=== PATIENT | female | born 2000 | race Hispanic/Latino ===

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

== ENCOUNTER 2019-03-11 22:40 | Emergency (ER) | payer OTHER ==
[~2019-03-11] VITALS: Ht 160 cm; Wt 79.4 kg
--- OUTSIDE RECORDS SUMMARY | ~2019-03-11 | XMS | Encounter Summary ---
Demographics + + + | Address | [address] | | | [place] [address] | + + + | Home Phone | | + + + | Preferred Language | Unknown | + + + | Marital Status | Single | + + + | Cheondoism Affiliation | Unknown | + + + | Race | White | + + + | Ethnic Group | or | + + + Author + + + | Author | [facility] | + + + | Organization | [facility] | + + + | Address | Unknown | + + + | Phone | Unavailable | + + + Support + + +---------+ + | Name | Relationship | Address | Phone | + + +---------+ + | Lizz Trejo | ECON | Unknown | | + + +---------+ + | Lacey Reyes | ECON | Unknown | Unavailable | + + +---------+ + Care Team Providers + +------+ + | Care Marine Fisheries Technician Name | Role | Phone | + +------+ + | Juan Serrano NP | PCP | | + +------+ + Reason for Referral Diagnostic Testing (Routine) +--------+--------+ + + + + | Status | Reason | Specialty | Diagnoses / | Referred By | Referred To | | | | | Procedures | Contact | Contact | +--------+--------+ + + + + | Closed | | Radiology | Diagnoses | [facility] Serrano [facility] | | | | | Spina | Juan Rendon NP | [address] | | | | | bifida | [address] | [facility] | | | | | without | HOSPITAL WE | Rd | | | | | mention of | CARE CLINIC | Mailcode: | | | | | hydrocephalu | [address] | [address] | | | | | s, lumbar | [address] | [place] | | | | | region | [place], | Research | | | | | Lumbago | [place] [address] | Center | | | | | Procedures | Phone: | [place], [place] | | | | | MRI SPINE | [phone] | [address] | | | | | LUMBAR WO | Fax: | Phone: | | | | | CONT | [phone] | [phone] | | | | | | | Fax: | | | | | | | [phone] | +--------+--------+ + + + + Encounter Details +--------+ + + + + | Date | Type | Department | Care Team | Description | +--------+ + + + + | 06/08/ | Outside | Diagnostic Imaging | Juan Serrano, | | | 2011 | Referral | Services at [facility] | [employer] [address] | | | | Order | [address] [facility] | [facility] | | | | | Makayla Dowd Mailcode: | CLINIC [address] | | | | | [address] | [address] [place], [place] | | | | | [facility] | [address] | | | | | [place], [place] | | | | | | [address] | | | | | | [phone] | | | +--------+ + + + + Social History + +-------+ +--------+------+ | Tobacco Use | Types | Packs/Day | Years | Date | | | | | Used | | + +-------+ +--------+------+ | Never Assessed | | | | | + +-------+ +--------+------+ + + + | Sex Assigned at | Date Recorded | | | | + + + | Not on file | | + + + + + + + | Job Start Date | Occupation | Industry | + + + + | Not on file | Not on file | Not on file | + + + + + + + + | Travel History | Travel Start | Travel End | + + + + + + | No recent travel history available. | + + documented as of this encounter Plan of Treatment Not on filedocumented as of this encounter Results MRI SPINE LUMBAR WO CONT (07/12/2011 12:01 PM PDT) + + + + + + | Component | Value | Ref Range | Performed | Pathologist | | | | | At | Signature | + + + + + + | MR LUMBAR | MRI LUMBAR SPINE WITHOUT | | | | | SPINE WO | CONTRAST, 07/12/11 | | | | | CONT | 12:01:00 INDICATION: | | | | | | 11-year-old with low | | | | | | back pain. COMPARISON: | | | | | | None TECHNIQUE: | | | | | | Multiplanar, | | | | | | multi-sequence | | | | | | surface-coil MR imaging | | | | | | of thelumbar spine was | | | | | | performed without | | | | | | intravenous | | | | | | administration | | | | | | ofgadolinium-based | | | | | | contrast. Axial T1 | | | | | | sequence not performed | | | | | | as thestudy was not | | | | | | ordered as a tethered | | | | | | cord protocol. | | | | | | FINDINGS:The vertebral | | | | | | body heights and | | | | | | alignment maintained. | | | | | | Five lumbartype lumbar | | | | | | vertebrae. Bone marrow | | | | | | edema signal is noted in | | | | | | the L5 pedicles | | | | | | bilaterally.Also, a T2 | | | | | | hyperintense (cystic) | | | | | | lesion is identified | | | | | | along thelateral aspect | | | | | | of the left L5-S1 facet | | | | | | joint with no | | | | | | intraspinalcomponent. | | | | | | Mild facet arthropathy | | | | | | is also noted at the | | | | | | L4-L5 facets. No disk | | | | | | herniation, spinal canal | | | | | | stenosis or neural | | | | | | foraminalnarrowing. | | | | | | Morphologically normal | | | | | | conus medullaris ends at | | | | | | the L1-L2 levelwithout | | | | | | evidence of a fatty | | | | | | filum on the sagittal T1 | | | | | | sequence. | | | | | | IMPRESSION:L4-L5 and | | | | | | L5-S1 facet arthropathy | | | | | | with a suspected | | | | | | extraspinalsynovial cyst | | | | | | at the left L5-S1 | | | | | | level. 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 Attending | | | | | | Radiologists: Mahogany | | | | | | Arnoldo CastilloAuthor: Jae | | | | | | Arnoldo Parker I have | | | | | | personally viewed this | | | | | | procedure/exam, reviewed | | | | | | this report,and made | | | | | | changes to it where | | | | | | appropriate. | | | | | | Final/Electronically | | | | | | signed / Mahogany | | | | | | Jonathan 07/12/2011 16:13 | | | | | | PM Pending final | | | | | | approval / Jae | | | | | | Keith 07/12/2011 14:49 | | | | | | PM Preliminary / | | | | | | Jae Parker 07/12/2011 | | | | | | 12:33 PM | | | | + + + + + + + + | Specimen | + + | | + + + +---------+ + + | Performing | Address | City/State/Zipcode | Phone Number | | Organization | | | | + +---------+ + + | [facility] DEPARTMENT OF | | | | | RADIOLOGY | | | | + +---------+ + + documented in this encounter Visit Diagnoses + + | Diagnosis | + + | Spina bifida without mention of hydrocephalus, lumbar region | + + | Lumbago | + + documented in this encounter"
--- OUTSIDE RECORDS SUMMARY | ~2019-03-11 | XMS | Encounter Summary ---
Demographics + + + | Address | [address] | | | [place] [address] | + + + | Home Phone | | + + + | Preferred Language | Unknown | + + + | Marital Status | Single | + + + | Muslim Affiliation | Unknown | + + + | Race | White | + + + | Ethnic Group | or | + + + Author + + + | Author | [facility] | + + + | Organization | [facility] | + + + | Address | [...] Team Providers + +------+ + | Care Community Living Coach Name | Role | Phone | + [...] | Spina | Juan Rendon NP | [address] | | | | | bifida | [address] | [facility] | | | | | without | HOSPITAL WE | Rd | | | | | mention of | CARE CLINIC | Mailcode: | | | | | hydrocephalu | [address] | [address] | | | | | s, lumbar | [address] | [place] | | | | | region | [place], | Research | | | | | Lumbago | [place] [address] | Center | | | | | Procedures | Phone: | [place], [place] | | | | | MRI SPINE | [phone] | [address] | | | | | LUMBAR WO | Fax: | Phone: | | | | | CONT | [phone] | [phone] | | | | | | | Fax: | | | | | | | [phone] | +--------+--------+ + + + + Reason for Visit Diagnostic Testing (Routine) +--------+--------+ + + + + | Status | Reason | Specialty | Diagnoses / | Referred By | Referred To | | | | | Procedures | Contact | Contact | +--------+--------+ + + + + | Closed | | Radiology | Diagnoses | Maggie, | [facility] | | | | | Spina | Juan Rendon NP | [address] | | | | | bifida | [address] | [facility] | | | | | without | HOSPITAL WE | Rd | | | | | mention of | CARE CLINIC | Mailcode: | | | | | hydrocephalu | [address] | [address] | | | | | s, lumbar | [address] | [place] | | | | | region | [place], | Research | | | | | Lumbago | [place] [address] | Center | | | | | Procedures | Phone: | [place], [place] | | | | | MRI SPINE | [phone] | [address] | | | | | LUMBAR WO | Fax: | Phone: | | | | | CONT | [phone] | [phone] | | | | | | | Fax: | | | | | | | [phone] | +--------+--------+ + + + + Encounter Details +--------+ + + + + | Date | Type | Department | Care Team | Description | +--------+ + + + + | 07/11/ | Hospital | Radiology/Imaging | | | | 2011 | Encounter | Lab at [facility] [address] | | | | | [address] Mailcode: | | | | | | [facility] [place] [facility] | | | | [facility], | | | | | | Building [address], 3rd | | | | | | Floor [place], [place] | | | | | | [address] | | | | | | [phone] | | | +--------+ + + + + Social History + +-------+ +--------+------+ | Tobacco Use | Types | Packs/Day | Years | Date | | | | | Used | | + +-------+ +--------+------+ | Never Smoker | | | | | + +-------+ +--------+------+ + + +---------+ + | Alcohol Use | Drinks/Week | oz/Week | Comments | + + +---------+ + | Not Asked | | | | + + +---------+ + + + + | Sex Assigned at [...] + + documented as of this encounter Medications at Time of Discharge + + + +---------+--------+ + | Medication | Sig | Dispensed | Refills | Start | End Date | | | | | | Date | | + + + +---------+--------+ + | ACETAMINOPHEN WITH | Take by mouth. | | 0 | | | | CODEINE | | | | | | | (TYLENOL-CODEINE #3 | | | | | | | ORAL) | | | | | | + + + +---------+--------+ + | NAPROXEN ORAL | Take 550 mg by | | 0 | | | | | mouth. | | | | | + + + +---------+--------+ + documented as of this encounter Plan of Treatment Not on filedocumented as of this encounter Procedures + +--------+ + + + | Procedure Name | Priori | Date/Time | Associated Diagnosis | Comments | | | ty | | | | + +--------+ + + + | MRI SPINE LUMBAR WO | Routin | 07/12/2011 | Spina bifida | Results for this | | CONT | e | 12:01 PM | without mention of | procedure are in the | | | | PDT | hydrocephalus, | results section. | | | | | lumbar region | | | | | | Lumbago | | + +--------+ + + + documented in this encounter Results MRI SPINE LUMBAR WO [...] Jae | | | | | | Jesse Parker. I have | | | | | [...] | | + +---------+ + + | [facility] DEPARTMENT OF | | | | | RADIOLOGY | | | | + +---------+ + + documented in this encounter Visit Diagnoses + + | Diagnosis | + + | Spina bifida without mention of hydrocephalus, lumbar region | + + | Lumbago | + + documented in this encounter"
--- OUTSIDE RECORDS SUMMARY | ~2019-03-11 | XMS | Encounter Summary ---
Demographics + + + | Address | [address] | | | [place] [address] | + + + | Home Phone | | + + + | Preferred Language | Unknown | + + + | Marital Status | Single | + + + | Congregational Affiliation | Unknown | + + + | Race | White | + + + | Ethnic Group | or | + + + Author + + + | Author | [facility] | + + + | Organization | [facility] | + + + | Address | [...] Team Providers + +------+ + | Care Employee Representative Name | Role | Phone | + +------+ + | Juan Serrano NP | PCP | | + +------+ + Reason for Referral Consultation (Routine) +--------+--------+ + + + + | Status | Reason | Specialty | Diagnoses / | Referred By | Referred To | | | | | Procedures | Contact | Contact | +--------+--------+ + + + + | Closed | | Pediatric | Diagnoses | Bernard | [facility] | | | | Orthopedics | Back pain | Davey | [facility] [address] | | | | | Procedures | ,PhD [address] | [place] | | | | | CONSULT TO | [address] | Mailcode: | | | | | PEDS | [facility] | [address] | | | | | ORTHOPEDIC | [address] | [email or web address] | | | | | | [place], [place] | [place], [place] | | | | | | [address] | [address] | | | | | | Phone: | Phone: | | | | | | [phone] | [phone] | | | | | | Fax: | Fax: | | | | | | [phone] | [phone] | +--------+--------+ + + + + Reason for Visit + + + | Reason | Comments | + + + | New patient | | | consultation | | + + + Consultation (Routine) +--------+--------+ + + + + | Status | Reason | Specialty | Diagnoses / | Referred By | Referred To | | | | | Procedures | Contact | Contact | +--------+--------+ + + + + | Closed | | Pediatric | Diagnoses | Maggie, | Emmanuel, | | | | Neurological | Spina | Juan Rendon BUTTON STATION WORKER | MD Garett | | | | Surgery | bifida | [address] | [address] | | | | | without | HOSPITAL WE | Ave | | | | | mention of | CARE CLINIC | [place], [place] | | | | | hydrocephalu | [address] | [address] | | | | | s, lumbar | [address] | Phone: | | | | | region | [place], | [phone] | | | | | Lumbago | [place] [address] | Fax: | | | | | --AUT | Phone: | [phone] | | | | | H req'd | [phone] | | | | | | prior to | Fax: | | | | | | scheduling | [phone] | | +--------+--------+ + + + + Encounter Details +--------+---------+ + + + | Date | Type | Department | Care Team | Description | +--------+---------+ + + + | 07/11/ | Office | Neurosurgery at | Garett Benitez MD | Back pain (Primary | | 2012 | Visit | [address] | [address] | Dx) | | | | Ave Mailcode: CH[address] | [place], [place] | | | | | [facility] | [address] | | | | | and Healing, | [phone] | | | | | [facility] | | | | | | Floor [place], [place] | | | | | | [address] | | | | | | [phone] | | | +--------+---------+ + + + Social History + +-------+ [...] + + documented as of this encounter Progress Notes Garett Benitez MD - 07/12/2011 1:13 PM PDTI saw and evaluated the patient. I agree with the findings and the plan of care as documented in the resident s note. Exam normal. Back pain only. MRI shows a small extra spinal per radiology synovial cyst lat eral joint aspect not near neural elements, no tethered cord. There is high marrow signal in bilateral L5 pedicles without obvious lysis, suggestive of possible injury/strain and sourc e of axial LBP. I have referred to orthopedics who manage this problem. They are also aware of a potential myriad of non-spinal causes, that were not evaluated tod ay, that MRI shows other non-spinal areas of the body incidentally that I cannot evaluate, e tc. All their excellent questions were answered at length and they expressed understanding and satisfaction. Dx: Axial low back pain. Garett Benitez MD, PhD, FACS, FAAP [facility] Professor of Pediatric Neurosurgery [employer] Supervisor for Education and Lathe Hand Davey Shrestha MD,PhD - 07/12/2011 12:36 PM PDT PEDIATRIC NEUROSURGERY CONSULTATION ATTENDING SURGEON: Garett Benitez MD., Ph.D Reason for Consultation: Back pain HPI: 11 y/o F first developed back pain at age 8 after a fall. She subsequently improved, but developed recurrent pain this year after another fall. She states the pain is on the R side of her back and does not radiate. She has tried tylenol 3 and naproxen for pain withou t significant relief. Her PCP ordered x-rays of the lumbar spine that showed spina bifida o culta at S1/2 and she was referred for neurosurgical evaluation. She states that she occasi onally feels weak in her thighs, but otherwise denies numbness, tingling or weakness. She d enies bowel or bladder dysfunction. History: No past medical history on file. Past Surgical History Procedure Date No past surgical history Current outpatient prescriptions:ACETAMINOPHEN WITH CODEINE (TYLENOL-CODEINE #3 ORAL), Take by mouth. , Disp: , Rfl: NAPROXEN ORAL, Take 550 mg by mouth. , Disp: , Rfl: No Known Allergies Review of Systems: This patient/parent denies any difficulties with headache, double vision, numbness or weakn ess of the face, difficulty with swallowing, history of seizures, numbness or weakness of ex tremities, difficulty with gait, pain, or drop-off in development or cognitive performance. They deny headache, sleep disturbance, food intolerance or unexplained vomiting, or other in direct signs of raised intracranial pressure. Other review of systems are negative. There i s no bleeding diathesis. History: Term, vaginal delivery without problems. Developmental History: On par. Family History: Non-contributory for presenting complaint and findings. Social History: Lives at home in supportive non-smoking home care environment. Physical Exam: There were no vitals taken for this visit. The patient is well-developed and well-nourished, and pain free. There are no cutaneous stigmata of neurophakomatoses or of midline spinal dysraphism. Normocephalic. The abdomen is soft, without masses or rebound tenderness. The neck is supple without mass es and the trachea is midline. Neurological exam: Alert, oriented, age appropriate fluent speech/verbalization. Pupils are equal, round, and reactive to light. EOMI. Sensation to touch in face is prese nt and symmetrical. Faces symmetrical. Hearing grossly intact. Tongue protrudes into midl ine. Palate elevates at midline. Good SCM and Trapezius muscle function bilaterally. Hear ing is intact to finger-rub. Vision is intact to objects/type. Extremity exam: Right deltoid 5/5 Right biceps 5/5 Right triceps 5/5 Right hand intrinsics 5/5 Left deltoid 5/5 Left biceps 5/5 Left triceps 5/5 Left hand intrinsics 5/5 Right iliopsoas 5/5 Right quadriceps femoris 5/5 Right anterior tibialis 5/5 Right gastrocnemius 5/5 Right EHL 5/5 Left iliopsoas 5/5 Left quadriceps femoris 5/5 Left anterior tibialis 5/5 Left gastrocnemius 5/5 Left EHL 5/5 Reflexes: Right Biceps: 2/4 Right Triceps 2/4 Left Biceps 2/4 Left Triceps 2/4 Right Knee 2/4 Right Ankle 2/4 Left Knee 2/4 Left Ankle 2/4 Plantar response: toes going downward bilaterally. There are no Hoffmans reflexes, ankle clonus or long tract signs. Sensory exam in extremities: No sensory deficits in right upper extremity to light touch. No sensory deficits in left upper extremity to light touch No sensory deficits in right lower extremity to light touch No sensory deficits in left lower extremity to light touch The lower extremities and feet are of equal size and length with normal, symmetric arches. Muscle bulk and tone are normal and symmetric. There is no gross scoliosis There is tenderness to palpation diffusely over the lumbar spine, and focal tenderness on t he R in the lower lumbar spine Cerebellar exam: No dysmetria on finger to nose on right. No dysmetria on finger to nose on left. Mobility/gait is normal for age. Imaging: MRI of the lumbar spine shows normal alignment. The discs are well-hydrated. There is no spondylolisthesis. The conus ends at L1/2. There is STIR hyperintensity in the pedicles bi laterally at L5. There is a a synovial cyst extending posteriorly from the R L5/S1 facet erma int that does not cause neural compression. Assessment: 11 y/o F with non-radicular low back pain. There is no neural compression or e vidence of spinal cord tethering. Plan: Refer to pediatric orthopedics for evaluation of L5 pedicle edema and synovial cyst. See Dr. Benitez's note for details. documented in this encounter Plan of Treatment Not on filedocumented as of this encounter Procedures + +--------+ + + + | Procedure Name | Priori | Date/Time | Associated Diagnosis | Comments | | | ty | | | | + +--------+ + + + | RADIOLOGY | | 07/12/2011 | | Results for this | | | | 12:00 AM | | procedure are in the | | | | PDT | | results section. | + +--------+ + + + documented in this encounter Results RADIOLOGY (07/12/2011 12:00 AM PDT) + + + | Narrative | Performed At | + + + | | | + + + + + | Transcriptions | + + | Yuriy Tracy - 07/13/2011 4:49 PM PDT | + + documented in this encounter Visit Diagnoses + + | Diagnosis | + + | Back pain - Primary Backache, unspecified | + + documented in this encounter"
--- OUTSIDE RECORDS SUMMARY | ~2019-03-11 | XMS | Clinical Summary ---
Demographics + + + | Address | [address] | | | [place] [address] | + + + | Home Phone | | + + + | Preferred Language | Unknown | + + + | Marital Status | Single | + + + | Pentecostal Affiliation | Unknown | + + + | Race | White | + + + | Ethnic Group | or | + + + Author + + + | Author | NON REVENUE LOCATIONS | + + + | Organization | NON REVENUE LOCATIONS | + + + | Address | [...] Team Providers + +------+ + | Care Supervisor Publications Name | Role | Phone | + +------+ + | Juan Serrano JEWELRY MANAGER | PCP | | + +------+ + Source Comments LUNA is fully live on both [facility] Ambulatory and [facility] InPatient.[facility] Allergies No Known Allergies Medications + + + +---------+------+------+-------+ | Medication | Sig | Dispensed | Refills | Star | End | Statu | | | | | | t | Date | s | | | | | | Date | | | + + + +---------+------+------+-------+ | ACETAMINOPHEN WITH | Take by mouth. | | 0 | | | Activ | | CODEINE | | | | | | e | | (TYLENOL-CODEINE #3 | | | | | | | | ORAL) | | | | | | | + + + +---------+------+------+-------+ | NAPROXEN ORAL | Take 550 mg by | | 0 | | | Activ | | | mouth. | | | | | e | + + + +---------+------+------+-------+ Active Problems + + + | Problem | Noted Date | + + + | Back pain | 07/12/2011 | + + + Family History + +------+--------+ + | Relation | Name | Status | Comments | + +------+--------+ + | Brother | | Alive | | + +------+--------+ + | Father | | Alive | | + +------+--------+ + | Mother | | Alive | | + +------+--------+ + | Sister | | Alive | | + +------+--------+ + Social History + +-------+ +--------+------+ | [...] recent travel history available. | + + Last Filed Vital Signs + + + + + | Vital Sign | Reading | Time Taken | Comments | + + + + + | Blood Pressure | - | - | | + + + + + | Pulse | - | - | | + + + + + | Temperature | - | - | | + + + + + | Respiratory Rate | - | - | | + + + + + | Oxygen Saturation | - | - | | + + + + + | Inhaled Oxygen | - | - | | | Concentration | | | | + + + + + | Weight | 62.2 kg (137 lb 2 | 08/07/2011 3:24 PM | | | | oz) | PDT | | + + + + + | Height | 160 cm (5' 2.99") | 08/07/2011 3:24 PM | | | | | PDT | | + + + + + | Body Mass Index | 24.3 | 08/07/2011 3:24 PM | | | | | PDT | | + + + + + Plan of Treatment + + + + + | Health Maintenance | Due Date | Last Done | Comments | + + + + + | Influenza (Flu) | | | | | vaccination (#1) | 9 | | | + + + + + | Pneumococcal | Aged Out | | No longer eligible | | vaccination | | | based on patient's | | | | | age to complete this | | | | | topic | + + + + + Results Not on filefrom Last 3 Months Insurance +---------+--------+ +--------+ +---------+--------+ | Payer | Benefi | Subscriber | Effect | Phone | Address | Type | | | t Plan | ID | jc | | | | | | / | | Dates | | | | | | Group | | | | | | +---------+--------+ +--------+ +---------+--------+ | | [employer]IC[employer] | [phone] | 07/02/19 | [phone] | | Indemn | | | [place] | | 13-Pre | 8 | | ity | | | | | sent | | | | | | HEALTH | | | | | | | | NET | | | | | | +---------+--------+ +--------+ +---------+--------+ + +--------+ +--------+ + + | Guarantor Name | Accoun | Relation to | Date | Phone | Billing Address | | | t Type | Patient | of | | | | | | | | | | + +--------+ +--------+ + + | L[facility]Y [facility] | Person | Parent | [birth year] | [address] | | | al/Fam | | 1983 | [phone] | [place] | | | linda | | | 8 (Home) | [phone] | + +--------+ +--------+ + +
--- OUTSIDE RECORDS SUMMARY | ~2019-03-11 | XMS | Clinical Summary ---
Demographics + + + | Address | [address] | | | [place] [address] | + + + | Home Phone | | + + + | Preferred Language | Unknown | + + + | Marital Status | Single | + + + | Anabaptist Affiliation | Unknown | + + + [...] Team Providers + +------+ + | Care Adult Nurse Practitioner Name | Role | Phone | + +------+ + | Juan Serrano SCREW MACHINE SET UP OPERATOR TOOL | PCP | | + +------+ + Source Comments LUNA is fully live on both [facility] and [facility] InPatient.[facility] Allergies No Known Allergies Medications + + [...] linda | | | [address] (Home) | [id number] | + +--------+ +--------+ + +
--- OUTSIDE RECORDS SUMMARY | ~2019-03-11 | XMS | Encounter Summary ---
Demographics + + + | Address | [address] | | | [place] [address] | + + + | Home Phone | | + + + | Preferred Language | Unknown | + + + | Marital Status | Single | + + + | Anabaptist Affiliation | Unknown | + + + | Race | White | + + + | Ethnic Group | or | + + + Author + + + | Author | [facility] | + + + | Organization | [facility] | + + + | Address | [...] Team Providers + +------+ + | Care Diversity Manager Name | Role | Phone | + [...] Orthopedics | Back pain | Davey | [facility] [address] | | | | | Procedures | ,PhD 2890 | [place] | | | | | CONSULT TO | [address] | Mailcode: | | | | | PEDS | [facility] | [address] | | | | | ORTHOPEDIC | Rd | [facility] | | | | | | [place], [place] | [place], [place] | | | | | | [address] | [address] | | | | | | Phone: | Phone: | | | | | | [phone] | [phone] | | | | | | Fax: | Fax: | | | | | | [phone] | [phone] | +--------+--------+ + + + + Reason [...] | Neurological | Spina | Juan Rendon CHEMICAL PROCESSING EQUIPMENT REPAIRER | MD Garett | | | | Surgery | bifida | [address] | [address] | | | | | without | HOSPITAL WE | Ave | | | | | mention of | CARE CLINIC | [place], [place] | | | | | hydrocephalu | [address] | [address] | | | | | s, lumbar | [address] | Phone: | | | | | region | [place], | [phone] | | | | | Lumbago | [place] [address] | Fax: | | | | | --AUT | Phone: | [phone] | | | | | H req'd | [phone] | | | | | | prior to | Fax: | | | | | | scheduling | [phone] | | +--------+--------+ + + + + [...] | | | Ave Mailcode: CH8N | [place], [place] | | | | | [facility] | [address] | | | | | and Healing, | [phone] | | | | | [facility] | | | | | | Floor [place], [place] | | | | | | [address] | | | | | | [phone] | | | +--------+---------+ + + + [...] pain. Garett Benitez MD, PhD, FACS, FAAP [facility] Professor of Pediatric Neurosurgery Ambulatory Care for Education and Track Service Worker Davey Shrestah MD,PhD - 07/12/2011 12:36 PM PDT PEDIATRIC [...]
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
--- OUTSIDE RECORDS SUMMARY | ~2019-03-11 | XMS | Encounter Summary ---
Demographics + + + | Address | [address] | | | [place] [address] | + + + | Home Phone | | + + + | Preferred Language | Unknown | + + + | Marital Status | Single | + + + | Jew Affiliation | Unknown | + + + | Race | White | + + + | Ethnic Group | or | + + + Author + + + | Author | [facility] | + + + | Organization | [facility] | + + + | Address [...] Team Providers + +------+ + | Care Assembler Handbags Name | Role | Phone | + +------+ + | Juan Serrano NP | PCP | | + +------+ + Encounter Details +--------+ + + + + | Date | Type | Department | Care Team | Description | +--------+ + + + + | 05/03/ | Abstract | NON-[facility] EPIC | Juan Serrano, | | | 2011 | | Department | ELECTRICAL INTEGRATOR [address] | | | | | | [facility] | | | | | | CLINIC [address] [facility] | | | | | | [place] | | | | | | [address] | | | | | | | | +--------+ + + + [...] filedocumented as of this encounter Visit Diagnoses Not on filedocumented in this encounter"
--- OUTSIDE RECORDS SUMMARY | ~2019-03-11 | XMS | Encounter Summary ---
Demographics + + + | Address | [address] | | | [place] [address] | + + + | Home Phone | | + + + | Preferred Language | Unknown | + + + | Marital Status | Single | + + + | Mosque Affiliation | Unknown | + + + | Race | White | + + + | Ethnic Group | or | + + + Author + + + | Author | [facility] | + + + | Organization | [facility] | + + + | Address | [...] Team Providers + +------+ + | Care Patient Assessment Coordinator Name | Role | Phone | + [...] | | | | Procedures | ,PhD [address] | [place] | | | | | CONSULT TO | [facility] | Mailcode: | | | | | PEDS | [facility] | [address] | | | | | ORTHOPEDIC | Rd | [address] | | | | | | [place], [place] | [place], [place] | | | | | | [address] | [address] | | | | | | Phone: | Phone: | | | | | | [phone] | [phone] | | | | | | Fax: | Fax: | | | | | | [phone] | [phone] | +--------+--------+ + + + + Encounter Details +--------+---------+ + + + | Date | Type | Department | Care Team | Description | +--------+---------+ + + + | 08/06/ | Office | Specialty Clinics | Umberto Araiza, | Low back pain | | 2011 | Visit | at [facility] [address] | [address] | (Primary Dx) | | | | [place] Mailcode: | [address] | | | | | [address] | [place], [place] | | | | | [place], [place] | [address] | | | | | [address] | [phone] | | | | | [phone] | | | +--------+---------+ + + + [...] and family will be contacted by our office support with additional inst ruction. Follow-up as needed. [...]
--- OUTSIDE RECORDS SUMMARY | ~2019-03-11 | XMS | Encounter Summary ---
Demographics + + + | Address | [address] | | | [place] [address] | + + + | Home Phone | | + + + | Preferred Language | Unknown | + + + | Marital Status | Single | + + + | Islam Affiliation | Unknown | + + + | Race | White | + + + | Ethnic Group | or | + + + Author + + + | Author | [facility] | + + + | Organization | [facility] | + + + | Address [...] Team Providers + +------+ + | Care Mortgage Processing Manager Name | Role | Phone | [...] | Spina | Juan Rendon NP | [address] | | | | | bifida | [address] | [facility] | | | | | without | [...] | | | | Lumbago | [place] [address] | Center | | | | | Procedures | Phone: | [place], [place] | | | | | MRI SPINE | [phone] | [address] | | | | | LUMBAR WO | Fax: | Phone: | | | | | CONT | [phone] | [phone] | | | | | | | Fax: | | | | | | | [phone] | +--------+--------+ + + + + Encounter Details +--------+ + + + + | Date | Type | Department | Care Team | Description | +--------+ + + + + | 06/08/ | Outside | Diagnostic Imaging | Juan Serrano, | | | 2011 | Referral | Services at [facility] | MAINTENANCE ENGINEER [address] | | | | Order | [address] [facility] | [facility] | | | | | Makayla Dowd Mailcode: | CLINIC [address] | | | | | [address] | [address] [place], [place] | | | | | [facility] | [address] | | | | | [place], [place] | | | | | | [address] | | | | | | [phone] | | | +--------+ + + + [...] | | + +---------+ + + | [facility] DEPARTMENT OF | | | | | RADIOLOGY | | | | + +---------+ + + documented in this encounter Visit Diagnoses + + | Diagnosis | + + | Spina bifida without mention of hydrocephalus, lumbar region | + + | Lumbago | + + documented in this encounter"
--- OUTSIDE RECORDS SUMMARY | ~2019-03-11 | XMS | Encounter Summary ---
Demographics + + + | Address | [address] | | | [place] [address] | + + + | Home Phone | | + + + | Preferred Language | Unknown | + + + | Marital Status | Single | + + + | Zoroastrianism Affiliation | Unknown | + + + | Race | White | + + + | Ethnic Group | or | + + + Author + + + | Author | [facility] | + + + | Organization | [facility] | + + + | Address | [...] Team Providers + +------+ + | Care Video Tape Transferrer Name | Role | Phone | + +------+ + | Juan Serrano NP | PCP | | + +------+ + Encounter Details +--------+ + + + + | Date | Type | Department | Care Team | Description | +--------+ + + + + | 05/03/ | Abstract | NON-[facility] EP[facility] | Juan Serrano, | | | 2011 | | Department | CONDUCTOR [address] | | | | | | [facility] | | | | | | CLINIC [address] [facility] | | | | | | [place] | | | | | | [address] | | | | | | | [...]
--- OUTSIDE RECORDS SUMMARY | ~2019-03-11 | XMS | Encounter Summary ---
Demographics + + + | Address | [address] | | | [place] [address] | + + + | Home Phone | | + + + | Preferred Language | Unknown | + + + | Marital Status | Single | + + + | Mormonism Affiliation | Unknown | + + + | Race | White | + + + | Ethnic Group | or | + + + Author + + + | Author | [facility] | + + + | Organization | [facility] | + + + | Address [...] Team Providers + +------+ + | Care Ergonomist Name | Role | Phone | + [...] | Spina | Juan Rendon NP | [address] | | | | | bifida | [address] | [facility] | | | | | without | HOSPITAL WE | Rd | | | | | mention of | CARE CLINIC | Mailcode: | | | | | hydrocephalu | [address] | [address] | | | | | s, lumbar | [address] | [place] | | | | | region | [place], | Research | | | | | Lumbago | [place] [address] | Center | | | | | Procedures | Phone: | [place], [place] | | | | | MRI SPINE | [phone] | [address] | | | | | LUMBAR WO | Fax: | Phone: | | | | | CONT | [phone] | [phone] | | | | | | | Fax: | | | | | | | [phone] | +--------+--------+ + + + + Reason [...] | Spina | Juan Rendon NP | [address] | | | | | bifida | [address] | [facility] | | | | | without | HOSPITAL WE | Rd | | | | | mention of | CARE CLINIC | Mailcode: | | | | | hydrocephalu | [address] | [address] | | | | | s, lumbar | [address] | [place] | | | | | region | [place], | Research | | | | | Lumbago | [place] [address] | Center | | | | | Procedures | Phone: | [place], [place] | | | | | MRI SPINE | [phone] | [address] | | | | | LUMBAR WO | Fax: | Phone: | | | | | CONT | [phone] | [phone] | | | | | | | Fax: | | | | | | | [phone] | +--------+--------+ + + + + Encounter Details +--------+ + + + + | Date | Type | Department | Care Team | Description | +--------+ + + + + | 07/11/ | Hospital | Radiology/Imaging | | | | 2011 | Encounter | Lab at [facility] [address] | | | | | | [address] Mailcode: | | | | | | [facility] | | | | | | [facility] He[facility], | | | | | | Building 1, 3rd | | | | | | Floor [place], [place] | | | | | | [address] | | | | | | [phone] | | | +--------+ + + + [...]
--- OUTSIDE RECORDS SUMMARY | 2019-03-11 22:42 | XMS ---
PreManage Notification: CARINA GREEN Security [employer] Nurse Events No recent Security Events currently on file CRITERIA MET - Group Notification CARE PROVIDERS There are no care providers on record at this time. En[facility]ina has no Care Guidelines for this patient. Chaim VISIT COUNT (12 MO.) 1 LIDIA Jaeger TOTAL 1 NOTE: Visits indicate total known visits. ED/UCC VISIT TRACKING (12 MO.) 03/11/2019 22:41 L[place]IA [place] TYPE: Emergency COMPLAINT: - ABD PAIN INPATIENT VISIT TRACKING (12 MO.) No inpatient visits to display in this time frame [email or web address]
[2019-03-11] MEDS ORDERED: HYDROXYZINE HCL50 MG PO (22:59)
== END 2019-03-12 00:11 | disposition home or self-care (01) ==
LOC: ED 22:40
DX: E28.2 Polycystic ovarian syndrome (principal); F17.200 Nicotine dependence, unspecified, uncomplicated; Z79.899 Other long term (current) drug therapy
CPT/HCPCS: 80053; 81001; 83690; 84703; 85025; 87491; 87591; 99284

== ENCOUNTER 2021-01-22 07:09 | Emergency (ER) | payer OTHER ==
[~2021-01-22] VITALS: Ht 160 cm; Wt 110.1 kg
[~2021-01-22 07:09] MED LIST: HYDROXYZINE HCL50 MG PO
--- OUTSIDE RECORDS SUMMARY | 2021-01-22 07:18 | XMS ---
PreManage Notification: CARINA GREEN Security Project Management Specialist Events No recent Security Events currently on file CRITERIA MET - Group Notification CARE PROVIDERS FADI NO Nurse Practitioner: [facility] 03/12/2019-Current PHONE: [phone] Care Guidelines exist for the following facilities: [facility] ( 03/21/2019 ) Care History Medical/Surgical 03/12/2019 [facility] Mailed info regarding appropriate use of ED. 03/12/2019 [facility] - Patient is currently established with [facility]. If patient is seen in the ED during business hours. Please contact CHWs at [facility]. Care Recommendation: If this patient has had 5 or more Emergency Department visits in the last 12 months.\T\nbsp; Patient will require education on the scope and purpose of the ED as an acute care provider not a Primary Care Provider and should not be utilized for chronic conditions.\T\nbsp; These are guidelines and the provider should exercise clinical judgment when providing care. E.D. VISIT COUNT (12 MO.) 1 [facility] TOTAL 1 NOTE: Visits indicate total known visits. ED/UCC VISIT TRACKING (12 MO.) 01/22/2021 07:10 [facility] [place] TYPE: Emergency COMPLAINT: - FEVER, BODY ACHES INPATIENT VISIT TRACKING (12 MO.) No inpatient visits to display in this time frame [email or web address]
== END 2021-01-22 09:29 | disposition home or self-care (01) ==
LOC: ED 07:09
DX: K52.1 Toxic gastroenteritis and colitis (principal); R50.83 Postvaccination fever; T50.B95A Adverse effect of other viral vaccines, initial encounter; F17.200 Nicotine dependence, unspecified, uncomplicated; Z79.899 Other long term (current) drug therapy
CPT/HCPCS: 99283; A9270

== ENCOUNTER 2021-06-22 13:57 | Emergency (ER) | payer OTHER ==
[~2021-06-22] VITALS: Ht 162.6 cm; Wt 111.0 kg
--- OUTSIDE RECORDS SUMMARY | 2021-06-22 14:04 | XMS ---
PreManage Notification: CARINA GREEN Security Teacher Tutor Events No recent Security Events currently on file CRITERIA MET - ED - Positive COVID-19 Lab Result - [facility] - Group Notification CARE PROVIDERS FITZ OCAMPO Physician Swager Operator Current PHONE: [phone] Care Guidelines exist for the following facilities: [facility] ( 03/21/2019 ) Care History Medical/Surgical 03/12/2019 [facility] Mailed info regarding appropriate use of ED. 03/12/2019 [facility] - Patient is currently established with [facility]. If patient is seen in the ED during business hours. Please contact CHWs at [facility]. Care Recommendation: If this patient has had [...] providing care. E.D. VISIT COUNT (12 MO.) [address] [facility] TOTAL 2 NOTE: Visits indicate total known visits. ED/UCC VISIT TRACKING (12 MO.) 06/22/2021 13:58 [facility] [place] TYPE: Emergency COMPLAINT: - SOB 01/22/2021 07:10 [facility] [place] TYPE: Emergency COMPLAINT: - FEVER, BODY ACHES DIAGNOSES: - Fever, unspecified - Other senior living (current) drug therapy - Postvaccination fever - Adverse effect of other viral vaccines, initial encounter - Nicotine dependence, unspecified, uncomplicated - Toxic gastroenteritis and colitis INPATIENT VISIT TRACKING (12 MO.) No inpatient visits to display in this time frame [email or web address]
[2021-06-22] MEDS ORDERED: LAMOTRIGINE100 MG PO (14:14)
[2021-06-22] MEDS ORDERED: VITAMIN D21250 MCG PO (14:14)
[2021-06-22] MEDS ORDERED: HYDROCODON-ACE1 EAC8 PO (15:24)
[2021-06-22] MEDS ORDERED: ONDANSETRON ODT4 MG PO (15:24)
== END 2021-06-22 15:37 | disposition home or self-care (01) ==
LOC: ED 13:57
DX: N83.209 Unspecified ovarian cyst, unspecified side (principal); F17.200 Nicotine dependence, unspecified, uncomplicated; Z79.899 Other long term (current) drug therapy
CPT/HCPCS: 80053; 81001; 83690; 84703; 85025; 87088; 96372; 99284; A9270; J1885

== ENCOUNTER 2024-09-08 05:16 | Emergency (ER) | payer SELFPAY ==
[~2024-09-08] VITALS: Ht 162.6 cm; Wt 115.3 kg
[~2024-09-08 05:16] MED LIST changes: +HYDROCODON-ACE1 EAC8 PO; +LAMOTRIGINE100 MG PO; +ONDANSETRON ODT4 MG PO; +VITAMIN D21250 MCG PO
[2024-09-08] MEDS ORDERED: PANTOPRAZOLE SODIUM 40 MG/10 ML VIAL IV ONE (05:30)
[2024-09-08] MEDS ORDERED: ondansetron HCL 4 MG/2 ML VIAL IV ONE (05:30)
[2024-09-08] MEDS ORDERED: SUCRALFATE 1 GM TAB PO ONE (05:30)
[2024-09-08] MEDS ORDERED: LIDOCAINE & ANTACID 35 ML BTL PO ONE (05:30)
[2024-09-08] MEDS ORDERED: ONDANSETRON ODT8 MG PO (05:48)
[2024-09-08] MEDS ORDERED: PROTONIX20 MG PO (05:48)
[2024-09-08] MEDS ORDERED: CARAFATE1 GM PO (05:48)
[2024-09-08 05:50] LABS: BASOPHILS 0.5 % (0.1-1.2); EOSINOPHILS 1.1 % (0.7-5.8); HEMOGLOBIN 12.5 g/dL (11.2-15.7); LYMPHOCYTES 19.6 % (19.3-51.7); MCH 26.2 PG (25.6-32.2); MCHC 31.3 g/dL (32.2-35.5); MCV 83.9 fL (79.4-94.8); MONOCYTES 5.6 % (4.7-12.5); NEUTROPHILS 72.9 % (34.0-71.1); PLATELET COUNT 300 K/uL (182-369); RBC 4.77 M/uL (3.93-5.22)
[2024-09-08 06:05] LABS: ALBUMIN 3.7 g/dL (3.4-5.0); ALBUMIN/GLOBULIN RATIO 0.88 (1.1-2.4); ANION GAP 12.6 (7-21); BILIRUBIN, TOTAL 0.5 mg/dL (0.2-1.0); BUN/CREATININE RATIO 13.69 (6.0-28.6); CALCIUM 9.2 mg/dL (8.5-10.1); CREATININE, SERUM 0.73 mg/dL (0.55-1.02); POTASSIUM 3.6 mmol/L (3.5-5.1); PROTEIN, TOTAL 7.9 g/dL (6.4-8.2)
[2024-09-08] MEDS ORDERED: MORPHINE SULFATE 4 MG/ML VIAL IV ONE (06:15)
[2024-09-08] MEDS ORDERED: SODIUM CHLORIDE 0.9% 500 ML IV PRN (06:15)
[2024-09-08 07:54] VITALS: BP 136/97
== END 2024-09-08 07:55 | disposition home or self-care (01) ==
LOC: ED 05:16
PROVIDERS: Family Medicine
DX: R10.13 Epigastric pain (principal); Z79.899 Other long term (current) drug therapy; F17.200 Nicotine dependence, unspecified, uncomplicated
CPT/HCPCS: 36415; 76705; 80053; 83690; 84703; 85025; 96361; 96374; 96375; 99284-25; J2270; J2405; J2470; J7040